=== PATIENT | female | born 1945 | race Caucasian/White ===

== ENCOUNTER 2020-05-16 22:56 | Inpatient (IN) ==
[2020-05-16] MEDS ORDERED: 0.9 % Sodium Chloride 1,000 ML IVC ONE (23:13)
[2020-05-17] MEDS ORDERED: Melatonin 3 MG TABLET PO PRN (00:31)
[2020-05-17] MEDS ORDERED: Ondansetron ODT 4 MG TAB.RAPDIS SL PRN (00:31)
[2020-05-17] MEDS ORDERED: Naloxone 0.4 MG/ML INJ IVP PRN (00:31)
[2020-05-17] MEDS ORDERED: Potassium Chloride 40 MEQ, Lidocaine 1% 2 ML in 0.9 % Sodium Chloride 500 ML IVPB ONE ×2 (00:38→06:37)
[2020-05-17] MEDS ORDERED: 0.9 % Sodium Chloride 1,000 ML IVC SCH (00:45)
[2020-05-17 00:48] LABS: BUN/Creatinine Ratio 23 (6-26); Blood Urea Nitrogen 15 mg/dL (8-23); Calcium 8.4 mg/dL (8.6-10.3); Carbon Dioxide 22 mEq/L (23-29); Chloride 90 mEq/L (98-107); Glucose 204 mg/dL (70-105); Osmolality,Calculated 263 (280-300); Potassium 3.1 mEq/L (3.5-5.1); Sodium 123 mEq/L (136-145); eGFR For African Americans > 60 (> 60); eGFR For Non-African Americans > 60 (> 60)
[2020-05-17] MEDS ORDERED: *HR* Dextrose 50 % in Water (Vial) 50 ML VIAL IVP PRN (00:49)
[2020-05-17] MEDS ORDERED: D5% in Water 1,000 ML IVC PRN (00:49)
[2020-05-17] MEDS ORDERED: Acetaminophen 325 MG TABLET PO PRN (00:49)
[2020-05-17] MEDS ORDERED: Dextrose Gel 15 GM/37.5 ML TUBE PO PRN ×2 (00:49)
[2020-05-17] MEDS ORDERED: *HR* HYDROcodone/Acet 5/325 mg TABLET PO PRN (00:49)
[2020-05-17 00:58] LABS: Magnesium 1.6 mg/dL (1.6-2.6); Phosphorous 2.9 mg/dL (2.7-4.5)
[2020-05-17] MEDS: Insulin LISPRO 300 UNITS/3 ML VIAL SUBQ SCH ×5 (02:54→21:16)
[2020-05-17] MEDS: *HR* Heparin 5,000 UNIT/ML VIAL SQ SCH ×4 (05:16→21:32)
[2020-05-17 06:12] LABS: Basophils % 0.2 %; Hematocrit 40.6 % (35.3-44.9); Hemoglobin 14.1 g/dL (11.5-15.4); Immature Granulocytes % 0.5 % (0-4); Lymphocytes # 1.6 K/mcL (0.6-4.6); Lymphocytes % 13.4 %; Mean Corpuscular HGB Conc 34.7 g/dL (31.6-35.5); Mean Corpuscular Hemoglobin 28.6 pg (28.0-33.3); Mean Corpuscular Volume 82.4 fL (83.0-100.0); Monocytes # 1.2 K/mcL (0.0-1.3); Monocytes % 9.8 %; Neutrophils # 9.3 K/mcL (1.6-8.9); Platelet Count 289 K/mcL (140-400); Red Blood Count 4.93 M/mcL (3.82-4.97); Red Cell Distribution Width 12.9 % (11.5-14.5); Segmented Neutrophils % 76.1 %; White Blood Count 12.2 K/mcL (4.3-11.1)
[2020-05-17 06:31] LABS: Prothrombin Time 11.7 Seconds (9.4-12.1)
[2020-05-17 06:33] LABS: Activated Partial Thrombo Time 27.5 Seconds (26.0-36.0)
[2020-05-17 06:36] LABS: Albumin 4.1 g/dL (3.5-5.7); BUN/Creatinine Ratio 21 (6-26); Bilirubin,Direct 0.3 mg/dL (0.0-0.2); Bilirubin,Indirect 1.5 mg/dL (0.0-1.0); Bilirubin,Total 1.8 mg/dL (0.3-1.0); Blood Urea Nitrogen 16 mg/dL (8-23); Calcium 8.5 mg/dL (8.6-10.3); Carbon Dioxide 21 mEq/L (23-29); Chloride 95 mEq/L (98-107); Globulin 2.1 g/dL (2.4-3.5); Glucose 212 mg/dL (70-105); Osmolality,Calculated 269 (280-300); Potassium 3.2 mEq/L (3.5-5.1); Sodium 126 mEq/L (136-145); Total Protein 6.2 g/dL (6.4-8.9); eGFR For African Americans > 60 (> 60); eGFR For Non-African Americans > 60 (> 60)
[2020-05-17] MEDS: acetaZOLAMIDE 250 MG TABLET PO SCH ×4 (07:59→21:14)
[2020-05-17] MEDS: PrednisoLONE Acetate 1% Opth 5 ML BOTTLE RIGHT EYE SCH ×4 (08:02→21:15)
[2020-05-17 08:44] LABS: BUN/Creatinine Ratio 21 (6-26); Blood Urea Nitrogen 17 mg/dL (8-23); Calcium 8.3 mg/dL (8.6-10.3); Carbon Dioxide 22 mEq/L (23-29); Chloride 97 mEq/L (98-107); Glucose 159 mg/dL (70-105); Osmolality,Calculated 269 (280-300); Potassium 3.3 mEq/L (3.5-5.1); Sodium 127 mEq/L (136-145); eGFR For African Americans > 60 (> 60); eGFR For Non-African Americans > 60 (> 60)
[2020-05-17 11:34] LABS: BUN/Creatinine Ratio 23 (6-26); Blood Urea Nitrogen 22 mg/dL (8-23); Carbon Dioxide 21 mEq/L (23-29); Chloride 102 mEq/L (98-107); Glucose 111 mg/dL (70-105); Osmolality,Calculated 276 (280-300); Potassium 4.1 mEq/L (3.5-5.1); Sodium 131 mEq/L (136-145); eGFR For African Americans > 60 (> 60); eGFR For Non-African Americans 56 (> 60)
[2020-05-17 18:01] LABS: BUN/Creatinine Ratio 29 (6-26); Blood Urea Nitrogen 30 mg/dL (8-23); Calcium 8.4 mg/dL (8.6-10.3); Carbon Dioxide 18 mEq/L (23-29); Chloride 106 mEq/L (98-107); Glucose 138 mg/dL (70-105); Osmolality,Calculated 282 (280-300); Sodium 132 mEq/L (136-145); eGFR For African Americans > 60 (> 60); eGFR For Non-African Americans 53 (> 60)
[2020-05-17 18:44] LABS: Bacteria,Urine Few per hpf (None-Few); Bilirubin,Urine Negative (Negative); Blood,Urine Negative (Negative); Clarity,Urine Turbid (Clear); Color,Urine Light-Yellow (Yellow); Glucose,Urine (UA) Normal (Normal); Ketones,Urine 10 mg/dL (Negative); Leukocyte Esterase,Urine Large (Negative); Mucus,Urine Few per lpf (None-Few); Nitrite,Urine Negative (Negative); PH,Urine 7.5 pH Units (5.0-8.0); Protein,Urine Trace mg/dL (Neg-Trace); Renal Epithelial Cells,Urine Few per hpf (None-Few); Squamous Epithelial Cell,Urine Moderate per hpf (None-Few); Transitional Epi Cells,Urine Few per hpf (None-Few); Urobilinogen,Urine Normal (Normal); WBC,Urine TNTC per hpf (0-3)
[2020-05-18 03:10] LABS: BUN/Creatinine Ratio 31 (6-26); Blood Urea Nitrogen 30 mg/dL (8-23); Calcium 8.1 mg/dL (8.6-10.3); Carbon Dioxide 15 mEq/L (23-29); Chloride 111 mEq/L (98-107); Glucose 131 mg/dL (70-105); Magnesium 2.4 mg/dL (1.6-2.6); Osmolality,Calculated 286 (280-300); Potassium 4.2 mEq/L (3.5-5.1); Sodium 134 mEq/L (136-145); eGFR For African Americans > 60 (> 60); eGFR For Non-African Americans 56 (> 60)
[2020-05-18] MEDS: *HR* Heparin 5,000 UNIT/ML VIAL SQ SCH ×3 (05:34→23:00)
[2020-05-18] MEDS: acetaZOLAMIDE 250 MG TABLET PO SCH ×4 (09:01→19:50)
[2020-05-18] MEDS: PrednisoLONE Acetate 1% Opth 5 ML BOTTLE RIGHT EYE SCH ×4 (09:02→19:51)
[2020-05-18] MEDS: Insulin LISPRO 300 UNITS/3 ML VIAL SUBQ SCH ×4 (09:03→19:44)
[2020-05-19 03:22] LABS: BUN/Creatinine Ratio 27 (6-26); Blood Urea Nitrogen 25 mg/dL (8-23); Calcium 7.9 mg/dL (8.6-10.3); Carbon Dioxide 15 mEq/L (23-29); Chloride 112 mEq/L (98-107); Glucose 138 mg/dL (70-105); Osmolality,Calculated 285 (280-300); Potassium 3.7 mEq/L (3.5-5.1); Sodium 134 mEq/L (136-145); eGFR For African Americans > 60 (> 60); eGFR For Non-African Americans 59 (> 60)
[2020-05-19] MEDS: *HR* Heparin 5,000 UNIT/ML VIAL SQ SCH (05:17)
[2020-05-19 07:15] LABS: Basophils % 0.6 %; Eosinophils # 0.1 K/mcL (0.0-0.6); Eosinophils % 1.1 %; Hematocrit 38.6 % (35.3-44.9); Hemoglobin 12.4 g/dL (11.5-15.4); Immature Granulocytes % 0.3 % (0-4); Lymphocytes # 2.2 K/mcL (0.6-4.6); Lymphocytes % 35.1 %; Mean Corpuscular HGB Conc 32.1 g/dL (31.6-35.5); Mean Corpuscular Hemoglobin 28.6 pg (28.0-33.3); Mean Corpuscular Volume 89.1 fL (83.0-100.0); Mean Platelet Volume 8.7 fL (9.4-12.4); Monocytes # 0.5 K/mcL (0.0-1.3); Monocytes % 8.3 %; Neutrophils # 3.5 K/mcL (1.6-8.9); Platelet Count 221 K/mcL (140-400); Red Blood Count 4.33 M/mcL (3.82-4.97); Red Cell Distribution Width 13.8 % (11.5-14.5); Segmented Neutrophils % 54.6 %; White Blood Count 6.4 K/mcL (4.3-11.1)
[2020-05-19] MEDS: acetaZOLAMIDE 250 MG TABLET PO SCH ×2 (09:34→12:50)
[2020-05-19] MEDS: Insulin LISPRO 300 UNITS/3 ML VIAL SUBQ SCH ×2 (09:34→12:31)
[2020-05-19] MEDS: PrednisoLONE Acetate 1% Opth 5 ML BOTTLE RIGHT EYE SCH ×2 (09:35→12:50)
[2020-05-19 12:19] VITALS: BP 151/83
== END 2020-05-19 13:18 | disposition home or self-care (01) | DRG 125 ==
LOC: 3BNU 22:56 → EMEROOARM 22:56 → SUATTDRO 05-17 00:02 → 3BNU 05-17 01:52
PROVIDERS: ADMIT Student in an Organized Health Care Education/Training Program; ATTEND Internal Medicine

== ENCOUNTER 2020-05-20 13:01 | Inpatient (IN) ==
[2020-05-20] MEDS ORDERED: Isovue-370 500 ML BOTTLE IVP ONE (13:10)
[2020-05-20 13:40] LABS: Hematocrit 45.8 % (35.3-44.9); Mean Corpuscular Hemoglobin 29.3 pg (28.0-33.3); Mean Corpuscular Volume 88.8 fL (83.0-100.0); Mean Platelet Volume 8.6 fL (9.4-12.4); Platelet Count 251 K/mcL (140-400); Red Blood Count 5.16 M/mcL (3.82-4.97); Red Cell Distribution Width 13.7 % (11.5-14.5); White Blood Count 6.9 K/mcL (4.3-11.1)
[2020-05-20 13:47] LABS: Hemoglobin 15.1 g/dL (11.5-15.4)
[2020-05-20 13:51] LABS: Activated Partial Thrombo Time 30.4 Seconds (26.0-36.0)
[2020-05-20 13:59] LABS: BUN/Creatinine Ratio 25 (6-26); Blood Urea Nitrogen 20 mg/dL (8-23); Calcium 8.8 mg/dL (8.6-10.3); Carbon Dioxide 16 mEq/L (23-29); Chloride 110 mEq/L (98-107); Ethanol < 10 mg/dL (Less than 10); Glucose 143 mg/dL (70-105); Osmolality,Calculated 285 (280-300); Potassium 3.6 mEq/L (3.5-5.1); Sodium 135 mEq/L (136-145); eGFR For African Americans > 60 (> 60); eGFR For Non-African Americans > 60 (> 60)
[2020-05-20 14:00] LABS: Troponin I < 0.03 ng/mL (< 0.04)
[2020-05-20] MEDS ORDERED: Aspirin 81 MG TAB.CHEW PO ONE (15:45)
[2020-05-20] MEDS ORDERED: Perflutren Lipid Microsphere 1.3 ML in 0.9 % Sodium Chloride 8.7 ML IVP PRN (18:00)
[2020-05-20] MEDS ORDERED: Dextrose Gel 15 GM/37.5 ML TUBE PO PRN ×2 (18:11)
[2020-05-20] MEDS ORDERED: *HR* Dextrose 50 % in Water (Vial) 50 ML VIAL IVP PRN (18:11)
[2020-05-20] MEDS ORDERED: *HR* Metoprolol 5 MG/5 ML VIAL IVP PRN (18:11)
[2020-05-20] MEDS ORDERED: D5% in Water 1,000 ML IVC PRN (18:11)
[2020-05-20] MEDS: PrednisoLONE Acetate 1% Opth 5 ML BOTTLE RIGHT EYE SCH (22:31)
[2020-05-20] MEDS: acetaZOLAMIDE 250 MG TABLET PO SCH (22:32)
[2020-05-20] MEDS: Insulin LISPRO 300 UNITS/3 ML VIAL SUBQ SCH (22:32)
[2020-05-21] MEDS ORDERED: diazePAM 5 MG TABLET PO PRN
[2020-05-21 04:05] LABS: INR 1.1; Prothrombin Time 12.5 Seconds (9.4-12.1)
[2020-05-21 04:21] LABS: Alanine Aminotransferase 8 Units/L (7-52); Albumin/Globulin Ratio 1.7 (1.1-2.2); Alkaline Phosphatase 47 Units/L (34-104); Aspartate Amino Transferase 7 Units/L (13-39); BUN/Creatinine Ratio 19 (6-26); Bilirubin,Total 1.1 mg/dL (0.3-1.0); Blood Urea Nitrogen 14 mg/dL (8-23); Calcium 8.4 mg/dL (8.6-10.3); Carbon Dioxide 17 mEq/L (23-29); Chloride 110 mEq/L (98-107); Cholesterol 180 mg/dL (< 200); Globulin 2.3 g/dL (2.4-3.5); Glucose 122 mg/dL (70-105); HDL Cholesterol 30 mg/dL (40-59); LDL Cholesterol,Calculated 116 mg/dL (< 100); Osmolality,Calculated 284 (280-300); Potassium 3.4 mEq/L (3.5-5.1); Sodium 136 mEq/L (136-145); Total Protein 6.3 g/dL (6.4-8.9); Triglycerides 170 mg/dL (< 150); eGFR For African Americans > 60 (> 60); eGFR For Non-African Americans > 60 (> 60)
[2020-05-21 04:52] LABS: Estimated Average Glucose 134 mg/dl; Hemoglobin A1C 6.3 %
[2020-05-21] MEDS: Aspirin 81 MG TAB.CHEW PO SCH (07:49)
[2020-05-21] MEDS: lisinopriL 20 MG TABLET PO SCH (07:50)
[2020-05-21] MEDS: acetaZOLAMIDE 250 MG TABLET PO SCH ×4 (07:50→20:36)
[2020-05-21] MEDS: PrednisoLONE Acetate 1% Opth 5 ML BOTTLE RIGHT EYE SCH ×4 (07:51→20:33)
[2020-05-21] MEDS: Insulin LISPRO 300 UNITS/3 ML VIAL SUBQ SCH ×4 (07:57→20:33)
[2020-05-21] MEDS: amLODIPine 5 MG TABLET PO SCH (13:55)
[2020-05-21 20:27] LABS: Bilirubin,Urine Negative (Negative); Blood,Urine Negative (Negative); Clarity,Urine Clear (Clear); Color,Urine Light-Yellow (Yellow); Glucose,Urine (UA) Normal (Normal); Ketones,Urine 10 mg/dL (Negative); Leukocyte Esterase,Urine Large (Negative); Nitrite,Urine Negative (Negative); PH,Urine 6.5 pH Units (5.0-8.0); Protein,Urine Negative (Neg-Trace); RBC,Urine 0-3 per hpf (0-3); Specific Gravity,Urine 1.009 (1.010-1.025); Squamous Epithelial Cell,Urine Few per hpf (None-Few); Urobilinogen,Urine Normal (Normal); WBC,Urine 15-30 per hpf (0-3)
[2020-05-21 20:34] LABS: Amphetamine Screen,Urine Negative ng/mL (Cutoff=1000); Barbiturate Screen,Urine Negative ng/mL (Cutoff=200); Benzodiazepines Screen,Urine Negative ng/mL (Cutoff=200); Cannabinoid Screen,Urine Negative ng/mL (Cutoff = 50); Cocaine Screen,Urine Negative ng/mL (Cutoff= 300); Opiate Screen,Urine Negative ng/mL (Cutoff=300); Phencyclidine Screen,Urine Negative ng/mL (Cutoff=25)
[2020-05-22] MEDS: *HR* Enoxaparin 40 MG/0.4 ML SYRINGE SQ SCH (05:37)
[2020-05-22] MEDS: acetaZOLAMIDE 250 MG TABLET PO SCH ×3 (12:42→19:49)
[2020-05-22] MEDS: Insulin LISPRO 300 UNITS/3 ML VIAL SUBQ SCH ×3 (12:42→20:17)
[2020-05-22] MEDS: PrednisoLONE Acetate 1% Opth 5 ML BOTTLE RIGHT EYE SCH ×3 (12:45→20:03)
[2020-05-23] MEDS: *HR* Enoxaparin 40 MG/0.4 ML SYRINGE SQ SCH (05:54)
[2020-05-23] MEDS: lisinopriL 20 MG TABLET PO SCH (07:32)
[2020-05-23] MEDS: amLODIPine 5 MG TABLET PO SCH (07:33)
[2020-05-23] MEDS: Aspirin 81 MG TAB.CHEW PO SCH (07:33)
[2020-05-23] MEDS: PrednisoLONE Acetate 1% Opth 5 ML BOTTLE RIGHT EYE SCH ×4 (07:36→20:48)
[2020-05-23] MEDS: Insulin LISPRO 300 UNITS/3 ML VIAL SUBQ SCH ×4 (07:37→20:45)
[2020-05-23] MEDS: acetaZOLAMIDE 250 MG TABLET PO SCH (07:50)
[2020-05-24] MEDS: *HR* Enoxaparin 40 MG/0.4 ML SYRINGE SQ SCH (05:33)
[2020-05-24 06:44] LABS: Hematocrit 40.6 % (35.3-44.9); Mean Corpuscular HGB Conc 33.3 g/dL (31.6-35.5); Mean Corpuscular Hemoglobin 28.8 pg (28.0-33.3); Mean Corpuscular Volume 86.8 fL (83.0-100.0); Mean Platelet Volume 8.5 fL (9.4-12.4); Platelet Count 295 K/mcL (140-400); Red Blood Count 4.68 M/mcL (3.82-4.97); Red Cell Distribution Width 13.6 % (11.5-14.5)
[2020-05-24 06:46] LABS: Hemoglobin 13.5 g/dL (11.5-15.4)
[2020-05-24] MEDS: Aspirin 81 MG TAB.CHEW PO SCH (09:44)
[2020-05-24] MEDS: Insulin LISPRO 300 UNITS/3 ML VIAL SUBQ SCH ×4 (09:44→19:58)
[2020-05-24] MEDS: PrednisoLONE Acetate 1% Opth 5 ML BOTTLE RIGHT EYE SCH ×4 (09:46→19:56)
[2020-05-24 09:52] LABS: Alanine Aminotransferase 9 Units/L (7-52); Albumin 3.7 g/dL (3.5-5.7); Albumin/Globulin Ratio 1.8 (1.1-2.2); Alkaline Phosphatase 46 Units/L (34-104); Aspartate Amino Transferase 11 Units/L (13-39); BUN/Creatinine Ratio 21 (6-26); Bilirubin,Total 1.4 mg/dL (0.3-1.0); Blood Urea Nitrogen 14 mg/dL (8-23); Calcium 8.2 mg/dL (8.6-10.3); Carbon Dioxide 21 mEq/L (23-29); Chloride 105 mEq/L (98-107); Globulin 2.1 g/dL (2.4-3.5); Glucose 145 mg/dL (70-105); Osmolality,Calculated 283 (280-300); Potassium 3.5 mEq/L (3.5-5.1); Sodium 135 mEq/L (136-145); Total Protein 5.8 g/dL (6.4-8.9); eGFR For African Americans > 60 (> 60); eGFR For Non-African Americans > 60 (> 60)
[2020-05-25] MEDS: *HR* Enoxaparin 40 MG/0.4 ML SYRINGE SQ SCH (05:56)
[2020-05-25 07:19] VITALS: BP 164/82
[2020-05-25] MEDS: Aspirin 81 MG TAB.CHEW PO SCH (07:22)
[2020-05-25] MEDS: Insulin LISPRO 300 UNITS/3 ML VIAL SUBQ SCH (07:22)
[2020-05-25] MEDS: PrednisoLONE Acetate 1% Opth 5 ML BOTTLE RIGHT EYE SCH (07:23)
[2020-05-25] MEDS ORDERED: lisinopriL 10 MG TABLET PO SCH (09:00)
== END 2020-05-25 11:43 | disposition home health service (06) | DRG 65 ==
LOC: 3BNU 13:01 → EMEROOARM 13:01 → SUATTDRO 17:29 → 3BNU 19:40
PROVIDERS: ADMIT Internal Medicine; ATTEND Registered Nurse